=== PATIENT | male | born 1960 | race Caucasian/White ===

== ENCOUNTER 2022-09-03 10:26 | Outpatient (CLI) | payer OTHER, SELFPAY ==
[2022-09-03 10:58] LABS: Estimated Glomerular Filt Rate 85 ml/min
--- NOTE | 2022-09-03 11:00 | CRLHL7_ITS ---
For Patients: As a result of the Century Cures Act, medical imaging exams and procedure reports are released immediately into your electronic medical record. You may view this report before your referring provider. If you have questions, please contact your health care provider. Indication: RIGHT INGUINAL HERNIA Technique: Postcontrast CT abdomen and pelvis. 95 cc Isovue 370 intravenous contrast. Please note that all CT scans at this facility use dose modulation, iterative reconstruction, and/or weight-based dosing when appropriate to reduce radiation dose to as low as reasonably achievable. Comparison: None Findings: Mild dependent areas atelectasis within the right lower lobe. No pleural effusion. No basilar infiltrate. No free intraperitoneal air. Solid osseous spurring across the sacroiliac joints. Incidental cyst within the left hepatic lobe anteriorly measuring 1.2 cm. No suspicious intrahepatic mass. No stigmata of cirrhosis. Gallbladder normal. No calcified gallstones. Pancreas normal. Normal spleen. Adrenal glands unremarkable. 1 centimeter cyst within the anterior left kidney at the medial aspect. Right kidney normal. Moderate atherosclerotic disease. No aneurysm. No retroperitoneal adenopathy. No mesenteric adenopathy. Bladder normal. Prostate not enlarged. Sigmoid diverticulosis. No diverticulitis. No free fluid or abscess. No small bowel obstruction. The appendix is diminutive, normal. Bilateral inguinal hernias are present. On the right, the hernia measures 2.5 cm and contains fat. On the left, the hernia measures 6 cm in length and contains primarily fat with a small amount of mesenteric vessels proximally. The sigmoid colon abuts the base of this hernia defect. No fracture is present. No inguinal or pelvic adenopathy. Impression: Bilateral inguinal hernias measuring 2.5 cm on the right and 6.0 cm on the left. Sigmoid diverticulosis. Incidental 1.2 cm cyst in the left hepatic lobe. Incidental cyst within the left kidney. Please note that all CT scans at this facility use dose modulation, iterative reconstruction, and/or weight-based dosing when appropriate to reduce radiation dose to as low as reasonably achievable. Dictated by Derrick Cullen MD @ 09/03/2022 1:14:15 PM (Electronically Signed)
== END 2022-09-03 10:27 | disposition home or self-care (01) ==
LOC: CT 10:28
PROVIDERS: PCP Physician Assistant Medical; Visit Provider Physician Assistant Medical
DX: K40.90 Unilateral inguinal hernia, without obstruction or gangrene, not specified as recurrent (principal); K57.30 Diverticulosis of large intestine without perforation or abscess without bleeding; K76.89 Other specified diseases of liver; N28.1 Cyst of kidney, acquired
CPT/HCPCS: 36415; 74177; 82565; Q9967

== ENCOUNTER 2022-09-17 13:54 | Outpatient (CLI) | payer OTHER, SELFPAY ==
--- NOTE | 2022-09-17 14:00 | CRLHL7_ITS ---
For Patients: As a result of the Century Cures Act, medical imaging exams and procedure reports are released immediately into your electronic medical record. You may view this report before your referring provider. If you have questions, please contact your health care provider. INDICATION: LEFT SIDED PAIN COMPARISON: 02/03/2013 TECHNIQUE: Zamorano scale imaging was performed of the scrotum. In addition color Doppler and spectral Doppler analysis was performed of the testes. FINDINGS: The testes demonstrate normal arterial and venous blood flow on color Doppler and spectral Doppler analysis. The testes have uniform echogenicity with no evidence of a suspicious mass or area of inflammation. The right testis measures 5.1 x 2.0 x 3.1 cm in size and the left testis measures 4.7 x 2.0 x 3.1 cm. Similar appearance of the epididymis on the left with diffuse enlargement. Similar left epididymal cyst measuring 9 x 9 x 11 millimeters and similar hyperechoic structure measuring 9 x 7 x 7 millimeters. There is no evidence of a hydrocele or varicocele. IMPRESSION: Normal ultrasound of the testicles. No torsion or testicular mass. Chronic changes to the left epididymis including epididymal cyst and hyperechoic focus, unchanged from the prior study. Dictated by Derrick Cullen MD @ 09/18/2022 9:56:31 AM (Electronically Signed)
== END 2022-09-17 13:55 | disposition home or self-care (01) ==
PROVIDERS: PCP Physician Assistant Medical; Visit Provider Surgery
DX: N50.82 Scrotal pain (principal)
CPT/HCPCS: 76870; 93976

== ENCOUNTER 2022-09-30 12:27 | Outpatient (CLI) | payer OTHER, SELFPAY ==
[2022-09-30 21:33] LABS: Chloride* 109 mmol/L (96-114); Potassium* 4.9 mmol/L (3.6-5.1); Sodium* 140 mmol/L (135-149)
[2022-09-30 21:35] LABS: Creatinine* 1.1 mg/dL (0.5-1.5); Estimated Glomerular Filt Rate 76 ml/min
[2022-09-30 21:36] LABS: Blood Urea Nitrogen* 20 mg/dL (7-30); Calcium* 9.7 mg/dL (8.4-10.6); Carbon Dioxide* 22 mmol/L (20-32); Glucose* 58 mg/dL (60-115)
[2022-09-30 21:37] LABS: Alanine Aminotransferase* 18 U/L (4-50); Aspartate Amino Transferase* 22 U/L (12-35); Cholesterol* 158 mg/dL (90-199); HDL Cholesterol* 36 mg/dL (>=40); LDL Cholesterol Calculated 95 mg/dL (<100); Triglycerides* 135 mg/dL (40-149)
[2022-09-30 22:07] LABS: PSA Screen* 1.76 ng/mL (0.10-4.00)
== END 2022-09-30 12:28 | disposition home or self-care (01) ==
PROVIDERS: PCP Physician Assistant Medical; Visit Provider Physician Assistant Medical
DX: Z01.818 Encounter for other preprocedural examination (principal); E78.5 Hyperlipidemia, unspecified; I10 Essential (primary) hypertension; E87.5 Hyperkalemia; Z12.5 Encounter for screening for malignant neoplasm of prostate
CPT/HCPCS: 80048; 80061; 84153; 84450; 84460

== ENCOUNTER 2022-10-06 07:21 | Day surgery (SDC) | payer OTHER, SELFPAY ==
[2022-10-06] VITALS (15 sets, daily range): BP systolic 97–145; BP diastolic 56–80; PULSE 70–84; RESP 12–19; TEMP 36.2–36.6; O2SAT 91–98; BMI 27.7
[2022-10-06] MEDS: LACTATED RINGERS 1000 ML 1,000 ML 100 ML IV (07:50)
[2022-10-06] MEDS: SODIUM CHLORIDE 0.9 % (FLUSH) 10 ML SYRINGE IVF (07:50)
--- NOTE | 2022-10-06 07:54 | SUR.PREOP ---
HOME COVID TEST NEGATIVE 10/05/22 @ 2029.
[2022-10-06] MEDS: BUPIVACAINE 0.25% 30 ML INJECTION (09:04)
--- NOTE | 2022-10-06 11:25 | W.ANESCHARGE ---
Anesthesia Charges Start Date/Time Anesthesia Start Date: 10/06/22 Stop Date/Time Anesthesia Stop Date: 10/06/22 Anesthesia Stop Time: 11:27 Summary Emergency: No
--- NOTE | 2022-10-06 11:33 | PM.GSPRC ---
Operative Note Date of procedure: 10/06/22 Type of Procedure: 1. Laparoscopic bilateral inguinal hernia repair with mesh. Procedure Description: After discussing the risks and benefits of the procedure, the patient signed informed consent.? The operative site was marked and the patient was brought to the operating room and placed on the operating table in supine position.? Care was taken to pad the patient's pressure points.?? The patient was then intubated by anesthesia.?? The operative site was then prepped and draped in the usual sterile fashion.? A time-out was then performed. An infraumbilical skin incision was made with a scalpel and subcutaneous tissues were dissected with electrocautery. Anterior sheath was incised with electrocautery and rectus muscle was retracted laterally. A 12 mm spacemaKeepGo dissector system was introduced into the incision and advanced over the posterior sheath. Preperitoneal space was dissected with manually insufflating air under direct visualization. Once the tissues were dissected, the balloon was deflated and removed.? A laparoscopic balloon was placed into preperitoneal space and balloon was inflated. Preperitoneal space was insufflated with air. No bleeding was identified upon examination of preperitoneal space. We then placed two 5 mm ports suprapubically under direct visualization. ? The preperitoneal tissues were bluntly dissected with graspers.? The pubic bone was identified and? cleared from preperitoneal tissue.??Dense adhesions were noted on the right side. The right inferior epigastrics were noted inferiorly. Those were retracted towards the abdominal wall and preperitoneal tissue on the right side was dissected bluntly. A small direct hernia was identified and no preperitoneal structures were incarcerated in this space. Peritoneal edge was identified on the right side and dissected away from the spermatic cord. The spermatic cord was then dissected circumferentially bluntly. A small indirect hernia was seen on the right side and that was reduced. Hemostasis was achieved with cautery. I then proceeded on the left side. The left inferior epigastrics were retracted towards the abdominal wall. The left preperitoneal space was dissected bluntly. A moderately-sized direct inguinal hernia sac was noted and was incarcerated in the inguinal canal. This was difficult to reduce. Dense adhesions were noted near the inguinal ring. Those adhesions were not coming apart with traction. The peritoneum tore open and hernia sac was examined from the inside. Intra-abdominal fat was incarcerated in the hernia sac. This fat was reduced from the hernia sac and pushed into the abdomen. The tear in the peritoneal edge was closed with 5 mm clips. The hernia sac was then divided near the internal ring with scissors. Spermatic cord and vas deferens was circumferentially dissected on the left side. When adequate space was developed for mesh placement, a left sided Parietex? mesh was used and positioned around the spermatic cord. The mesh was tacked medially and laterally with?tacks.? Similarly, the right-sided parotid tacks mesh was positioned around the spermatic cord. This was secured in place with tacks medially and laterally. Additional local anesthetic was injected directly into pre-peritoneal space. ? The space was deflated under direct visualization and mesh appeared to be still lying in a good position. The ports were then removed. Abdomen was noted to be tympanic from carbon dioxide. The posterior sheath and peritoneum were grasped with Aixa clamps and incised with Metzenbaum scissors. Air was evacuated from the abdomen. The posterior sheath and peritoneum were then closed with a [id number] 3-0 Vicryl suture. Anterior sheath was then closed with a running 0-0 vicryl suture. Skin was closed with 4-0 monocryl using subcuticular stitch. Steri strips were applied over the laparoscopic?incisions. ? All counts were correct at the end of the case. Patient tolerated the procedure well and was transferred to PACU without any complications.? Findings: Small direct and indirect hernia on the right side. Moderately-sized incarcerated hernia on the left side that was difficult to reduce. Anesthesia: GETA Surgeon: Jonatan Macedo MD Estimated blood loss (mL): 10 Condition: stable Disposition: PACU
[2022-10-06] MEDS: LACTATED RINGERS 1000 ML 1,000 ML 35 ML IV (11:55)
[2022-10-06] MEDS: HYDROCODONE-ACETAMIN 5-325 MG 1 TAB PO (12:18)
[2022-10-06] MEDS: fentaNYL 100 MCG/2 ML inj 50 MCG IVP (12:40)
--- NOTE | 2022-10-06 12:41 | W.ANESCHARGE ---
Anesthesia Charges Start Date/Time Anesthesia Start Date: 10/06/22 Anesthesia Start Time: 08:47 Stop Date/Time Anesthesia Stop Date: 10/06/22 Anesthesia Stop Time: 11:27 Summary Emergency: No
--- NOTE | 2022-10-06 12:44 | W.ANESCHARGE ---
Anesthesia Charges Start Date/Time Anesthesia Start Date: 10/06/22 Anesthesia Start Time: 08:47 Stop Date/Time Anesthesia Stop Date: 10/06/22 Anesthesia Stop Time: 11:27 Summary Emergency: No
== END 2022-10-06 13:35 | disposition home or self-care (01) ==
PROVIDERS: PCP Physician Assistant Medical; Visit Provider Surgery
PROC: (CPT 49650; principal; 2022-10-06 08:45)
DX: K40.00 Bilateral inguinal hernia, with obstruction, without gangrene, not specified as recurrent (principal)
CPT/HCPCS: 49650; 00830; 00860; A9270; C1781; J0330; J1100; J1885; J2405; J2704; J3010; J3490; J7120

== ENCOUNTER 2023-09-28 08:52 | Outpatient (CLI) | payer OTHER, SELFPAY | END 2023-09-28 08:53 | disposition home or self-care (01) | LOC: NFLDREF 09-29 06:38 | PROVIDERS: PCP Physician Assistant Medical; Referring Provider Physician Assistant Medical; Visit Provider Physician Assistant Medical | DX: Z00.00 Encounter for general adult medical examination without abnormal findings (principal); E11.9 Type 2 diabetes mellitus without complications; E87.5 Hyperkalemia; I10 Essential (primary) hypertension; E78.5 Hyperlipidemia, unspecified; Z12.5 Encounter for screening for malignant neoplasm of prostate | CPT/HCPCS: 80053; 80061; 82043; 82570; 84153 ==

== ENCOUNTER 2025-01-09 08:55 | Outpatient (CLI) | payer OTHER, SELFPAY | END 2025-01-09 08:56 | disposition home or self-care (01) | LOC: NFLDREF 01-11 07:51 | PROVIDERS: PCP Physician Assistant Medical; Referring Provider Physician Assistant Medical; Visit Provider Physician Assistant Medical | DX: E11.9 Type 2 diabetes mellitus without complications (principal); E78.2 Mixed hyperlipidemia; I10 Essential (primary) hypertension; Z79.4 Long term (current) use of insulin; Z12.5 Encounter for screening for malignant neoplasm of prostate | CPT/HCPCS: 80053; 80061; 82043; 82570; 84443; G0103 ==